=== PATIENT | female | born 1995 | race African-American/Black ===

== ENCOUNTER → 2017-06-27 | Day surgery (SDC) | payer OTHER ==
[~2017-06-27] VITALS: Ht 165.1 cm; Wt 142.4 kg
[~2017-06-27] MED LIST: HEADACHE RELIE1 EACH PO
--- NOTE | ~2017-06-27 | O ---
[facility] [place] [address] [address] OPERATIVE REPORT Name: LM CARDONA Room #: 150-9 [facility] M.R.#: [id number] Admission: 06/27/17 Attend Phys: Giancarlo Louis MD Discharge: Date of : 89 Report #: [id number] THIS REPORT FOR: //name// CC: FAM unknown Giancarlo Louis DATE OF SERVICE: 06/27/2017 PREOPERATIVE DIAGNOSES: Chronic tonsillitis with tonsil hypertrophy, obstructive sleep apnea. POSTOPERATIVE DIAGNOSES: Chronic tonsillitis with tonsil hypertrophy, obstructive sleep apnea. OPERATIVE PROCEDURE: Tonsillectomy. ANESTHESIA: General endotracheal. PROCEDURE: The patient was taken to the operating room and placed in supine position. General anesthesia was induced by endotracheal intubation. Once adequate general anesthesia was obtained, the patient was draped in a sterile manner. A Liliana-Damon mouth gag was placed in the patient's mouth, and the tongue was deviated upward. The nasopharynx was visualized indirectly using a mirror, the adenoid was not hypertrophied. The right tonsil was grasped and deviated towards midline, and incision was placed in the anterior tonsillar pillar using the Bovie electrocautery and a plane between the tonsillar capsule and tonsillar fossa was established. Dissection was carried out in this plane using the Bovie. Hemostasis was achieved during the dissection. Dissection was carried out from superior to the inferior, the inferior pole was incised. The posterior tonsillar mucosa was incised. The tonsil was removed and sent to pathology. The left tonsil was removed in exactly the same manner. The area was then irrigated with normal saline. Hemostasis was verified in the tonsillar beds. The mouth gag was removed. The patient tolerated the procedure well. BLOOD LOSS: Approximately 5 mL. The patient was then awoken to the recovery room in stable condition for postoperative monitoring. By: 0810 [id number] Giancarlo Louis MD /nt
--- NOTE | ~2017-06-27 | S ---
[facility] [place] [address] SURGICAL PATH RPT PROCEDURE Name: LORENA CARDONA Room #: 150-9 [facility] M.R.#: [id number] Admission: 06/27/17 Date of : 89 Discharge: Report #: [id number] Path Case #: [id number] PATHOLOGY REPORT COLLECTION DATE: 06/27/2017 RECEIVED DATE: 06/27/2017 SUBMITTING PHYS: Dr. Giancarlo Louis OTHER PHYS: SPECIMEN(S) RECEIVED: A.Right tonsil B.Left tonsil * * * * * * * * * * * * FINAL DIAGNOSIS: A. Right tonsil: - Tonsillar tissue with lymphoid hyperplasia. B. Left tonsil: - Tonsillar tissue with lymphoid hyperplasia. PATHOLOGIST: Amado Urena M.D. REPORT ELECTRONICALLY SIGNED BY: Amado Urena M.D. DATE/TIME: 06/28/2017 12:39 * * * * * * * * * * * * GROSS PATHOLOGY: A. Received in formalin, labeled "Lorena Cardona, right tonsil," is a tonsil measuring 4.6 x 2.8 x 2.2 cm in maximum dimensions. The mucosal surface is cuenca with the typical crypts identified. Sectioning reveals lobulated, homogeneous light cuenca cut surfaces with no grossly identifiable lesions. Site Administrator tissue is submitted in cassette A1. B. Received in formalin, labeled "Lorena Cardona, left tonsil," is a tonsil measuring 4.2 x 2.9 x 2.1 cm in maximum dimensions. The mucosal surface is cuenca with the typical crypts identified. Sectioning reveals lobulated, homogeneous light cuenca cut surfaces with no grossly identifiable lesions. Site Administrator tissue is submitted in cassette B1. (TSD; 06/27/2017) CLINICAL HISTORY: Hypertrophy tonsils, chronic tonsillitis, sleep apnea INITIAL CPT CODE(S): A; [address] [facility] [place] [address] SURGICAL PATH RPT PROCEDURE Name: LORENA CARDONA Room #: 150-9 [facility] M.R.#: [id number] Admission: 06/27/17 Date of : 89 Discharge: Report #: [id number] Path Case #: [id number]; [id number] Professional services performed by [facility] at [address] , [place] [address] Technical services performed by [facility] at [address] [place] [address], [facility] [address] [address]. [facility] [address] [place] [address] PHONE: [phone] DIRECTOR: Jeremi Mcmahon M.D. * * * END OF REPORT * * *
--- NOTE | ~2017-06-27 | EKG ---
[address] [employer] [address] ELECTROCARDIOGRAM REPORT Name: LM CARDONA Room #: 150-9 [facility]..#: [id number] Admission: 06/27/17 Attend Phys: Giancarlo Louis MD Discharge: Date of : 89 Report #: [id number] THIS REPORT FOR: //name// [facility] Test Date: 2017-06-27 Test Time: 06:22:50 Pat Name: LM CARDONA Department: Room: 150 9 Gender: F Life Skills Coordinator: DEBBIE : 1995 Requested By: Giancarlo Louis Order Number: [id number] MD: Alcon Aceves Measurements Intervals Thornton Rate: 91 P: 12 MO: 144 QRS: 4 QRSD: 86 T: 14 QT: 339 QTc: 418 Interpretive Statements Sinus rhythm Poor R wave progression Baseline wander in lead(s) I,III,aVL No previous ECG available for comparison Electronically Signed On 06-27-2017 9:15:18 DIRECTOR EXPERIMENTAL MEDICINE by Alcon Aceves [email or web address] <ELECTRONICALLY SIGNED> By: Alcon Aceves MD, [facility] 06/27/17 0915 0622 1 Alcon Aceves MD, FACC /EPI
--- NOTE | ~2017-06-27 | H ---
[facility] [place] [address] [place] [address] HISTORY AND PHYSICAL Name: LM CARDONA Room #: 150-9 [facility] M.R.#: [id number] Admission: 06/27/17 Attend Phys: Giancarlo Louis MD Discharge: Date of : 89 Report #: [id number] THIS REPORT FOR: //name// CC: FAM unknown Giancarlo Louis DATE OF SERVICE: 06/27/2017 HISTORY OF PRESENT ILLNESS: The patient is having problems with her tonsils. She has persistently enlarged tonsils causing blockage of the back of her throat. She gets frequent infections and pain and difficulty swallowing and fever. She has symptoms of obstructive sleep apnea with snoring and waking up frequently in the middle of the night. She has mild nasal congestion. PAST MEDICAL HISTORY: Otherwise, significant for diabetes and migraine headaches. MEDICATIONS: She is on no medications on a regular basis. ALLERGIES: She has no known drug allergies. PHYSICAL EXAMINATION: She has a good anterior nasal airway. She has 4+ enlarged tonsils, which actually meet in the midline with complete blockage of the posterior pharynx. She has some mild upper cervical adenopathy. IMPRESSION: Tonsil and plus adenoid hypertrophy with chronic tonsillitis and symptoms of obstructive sleep apnea. PLAN: Tonsillectomy and possible adenoidectomy. <ELECTRONICALLY SIGNED> By: Giancarlo Louis MD 06/27/17 0811 1545 1555 Giancarlo Louis MD /[email or web address]
[2017-06-27 07:06] VITALS: BP 134/73
[2017-06-27 08:34] VITALS: BP 134/73
== END | disposition home or self-care (01) ==
LOC: OR 05:27 → TBA 05:27 → OR 08:00
DX: J35.01 Chronic tonsillitis (principal); G47.33 Obstructive sleep apnea (adult) (pediatric); E11.9 Type 2 diabetes mellitus without complications; G43.909 Migraine, unspecified, not intractable, without status migrainosus; Z79.899 Other long term (current) drug therapy
CPT/HCPCS: 50010; 50101; 62110; 62900; 70005